=== PATIENT | male | born 1935 | race Caucasian/White ===

== ENCOUNTER 2017-02-25 15:20 | Emergency (ER) | payer OTHER ==
[~2017-02-25] VITALS: Ht 180.3 cm; Wt 90.0 kg
[2017-02-25 15:30] VITALS: BP 150/80; PULSE 88; RESP 16; TEMP 97.9; O2SAT 94
[2017-02-25 15:53] VITALS: BP 137/74; PULSE 77; RESP 18; TEMP 97.6; O2SAT 94
[2017-02-25] MEDS ORDERED: ATEN25TA PO (15:53)
[2017-02-25] MEDS ORDERED: TAMS0.4C4 PO (15:53)
[2017-02-25] MEDS ORDERED: LUTE6CAP2 PO (15:53)
[2017-02-25] MEDS ORDERED: ASPI81CH CHEW (15:53)
[2017-02-25] MEDS ORDERED: ATOR40TA16 PO (15:53)
[2017-02-25] MEDS ORDERED: OMEP20TA PO (15:53)
[2017-02-25] MEDS ORDERED: DOCU100C PO (15:53)
[2017-02-25 16:06] VITALS: O2SAT 95
[2017-02-25] MEDS ORDERED: SODIUM CHLORIDE 0.9% FLUSH 10 ML FLUSH IVF PRN (16:15)
[2017-02-25] MEDS ORDERED: ASPIRIN 81 MG CHEW TAB PO ONE (16:15)
--- NOTE | 2017-02-25 16:30 | RADRPT ---
EXAM DATE/TIME: 02/25/2017 16:18 [place] COMPARISON: No previous studies available for comparison. INDICATIONS : Right sided chest pain. MEDICAL HISTORY : None. SURGICAL HISTORY : None. ENCOUNTER: Initial ACUITY: 1 day PAIN SCORE: 7/10 LOCATION: Right chest FINDINGS: There is mild compensated cardiomegaly. Linear areas of parenchymal opacity left lung base possibly atelectasis. The portion of the bony skeleton visualized is unremarkable. CONCLUSION: Mild compensated cardiomegaly. Atelectatic changes left base. Zurdo Garcias MD FACR on February 25, 2017 at 16:28 Board Certified Radiologist. This report was verified electronically.
[2017-02-25 16:46] LABS: AUTOMATED NEUTROPHIL # 4.2 TH/MM3 (1.8-7.7); BASOPHIL % 0.4 % (0.0-2.0); EOSINOPHIL # 0.3 TH/MM3 (0-0.4); EOSINOPHIL % 3.3 % (0.0-4.0); HEMATOCRIT 39.7 % (39.0-51.0); HEMO FLAGS DIFF FINAL; LYMPH % 31.3 % (9.0-44.0); LYMPHOCYTE # 2.4 TH/MM3 (1.0-4.8); MEAN CELL VOLUME 96.3 FL (80.0-100.0); MEAN CORPUSCULAR HEMOGLOBIN 32.8 PG (27.0-34.0); PLATELET COUNT 168 TH/MM3 (150-450); RED BLOOD COUNT 4.13 MIL/MM3 (4.50-5.90); RED CELL DISTRIBUTION WIDTH 13.6 % (11.6-17.2); WHITE BLOOD COUNT 7.6 TH/MM3 (4.0-11.0)
[2017-02-25 16:53] LABS: ALT (GPT) 21 U/L (12-78); ANION GAP 9 MEQ/L (5-15); AST (GOT) 15 U/L (15-37); BLOOD UREA NITROGEN 13 MG/DL (7-18); CHLORIDE 109 MEQ/L (98-107); GLOMERULAR FILTRATION RATE 60 ML/MIN (>89); POTASSIUM 3.8 MEQ/L (3.5-5.1); SODIUM (NA) 142 MEQ/L (136-145)
[2017-02-25 16:58] LABS: ALKALINE PHOSPHATASE 84 U/L (45-117); TOTAL BILIRUBIN ADULT 0.6 MG/DL (0.2-1.0)
[2017-02-25 17:04] VITALS: BP_SYST 130; BP_SYST 139; BP_DIAS 77; BP_DIAS 84; PULSE 77; RESP 18; O2SAT 96
--- NOTE | 2017-02-25 17:24 | PD ---
HPI Chief Complaint: Chest Pain Time Seen by Provider: 15:59 Travel History International Travel<30 days: No Contact w/Intl Traveler<30days: No Traveled to known affect area: No History of Present Illness HPI This is a 81-year-old male who presents to the emergency department having had a flu shot in his right arm 5 days ago. The day after he started to have right sided chest wall pain that extends underneath his right armpit, constant, worse when he moves his arm, improved with rest, with no associated shortness of breath, diaphoresis, nausea or palpitations. The patient does have a history of hypertension and hyperlipidemia and he is borderline diabetic. He says he had a stress test about 6-8 months ago at the OR which was normal. PFSH Past Medical History Hx Anticoagulant Therapy: Yes (81MG ASA) Cardiovascular Problems: Yes (HTN) Hypertension: Yes Immunizations Current: Yes Social History Alcohol Use: No Tobacco Use: No Substance Use: No Allergies-Medications (Allergen,Severity, Reaction): Coded Allergies: No Known Allergies (Unverified , 02/25/17) Reported Meds & Prescriptions Reported Meds & Active Scripts Active Reported Tamsulosin (Tamsulosin HCl) 0.4 Mg Cap 0.4 Mg PO HS Omeprazole 20 Mg Tab 20 Mg PO DAILY Lutein 6 Mg Cap 6 Mg PO DAILY Docusate Sodium 100 Mg Cap 100 Mg PO DAILY Atorvastatin (Atorvastatin Calcium) 40 Mg Tab 40 Mg PO HS Atenolol 25 Mg Tab 25 Mg PO DAILY Aspirin 81 Mg Chew 81 Mg CHEW DAILY Review of Systems Except as stated in HPI: all other systems reviewed are Neg Physical Exam Narrative GENERAL:Well appearing, no acute distress SKIN: Focused skin assessment warm and dry. HEAD: Atraumatic. Normocephalic. EYES: Pupils equal and round. No injection or drainage. ENT: Moist mucous membranes NECK: Trachea midline. CARDIOVASCULAR: Regular rate and rhythm. No murmur appreciated. RESPIRATORY: Clear to auscultation. Breath sounds equal bilaterally. GASTROINTESTINAL: Abdomen soft, non-tender, nondistended. MUSCULOSKELETAL: Tender to palpation over the right chest wall with pain with abduction of the right shoulder NEUROLOGICAL: Awake and alert. No obvious cranial nerve deficits. Moving all extremities. PSYCHIATRIC: Appropriate mood and affect; insight and judgment normal. Data Data Last Documented VS Vital Signs Date Time Temp Pulse Resp B/P (MAP) Pulse Ox O2 Delivery O2 Flow Rate FiO2 10/13/17 17:04 77 18 130/77 (94) 96 Room Air 139/84 (102) 02/25/17 15:53 97.6 Orders Orders Electrocardiogram (02/25/17 16:04) Complete Blood Count With Diff (02/25/17 16:04) Comprehensive Metabolic Panel (02/25/17 16:04) Troponin I (02/25/17 16:04) Ecg Monitoring (02/25/17 16:04) Bilateral Bp Monitoring (02/25/17 16:04) Iv Access Insert/Monitor (02/25/17 16:04) Oximetry (02/25/17 16:04) Oxygen Administration (02/25/17 16:04) Aspirin Chew (Aspirin Chew) (02/25/17 16:15) Sodium Chloride 0.9% Flush (Ns Flush) (02/25/17 16:15) Chest, Pa & Lat (02/25/17 16:04) Labs Laboratory Tests Test 02/25/17 16:15 White Blood Count 7.6 TH/MM3 Red Blood Count 4.13 MIL/MM3 Hemoglobin 13.5 GM/DL Hematocrit 39.7 % Mean Corpuscular Volume 96.3 FL Mean Corpuscular Hemoglobin 32.8 PG Mean Corpuscular Hemoglobin Concent 34.0 % Red Cell Distribution Width 13.6 % Platelet Count 168 TH/MM3 Mean Platelet Volume 6.8 FL Neutrophils (%) (Auto) 55.0 % Lymphocytes (%) (Auto) 31.3 % Monocytes (%) (Auto) 10.0 % Eosinophils (%) (Auto) 3.3 % Basophils (%) (Auto) 0.4 % Neutrophils # (Auto) 4.2 TH/MM3 Lymphocytes # (Auto) 2.4 TH/MM3 Monocytes # (Auto) 0.8 TH/MM3 Eosinophils # (Auto) 0.3 TH/MM3 Basophils # (Auto) 0.0 TH/MM3 CBC Comment DIFF FINAL Differential Comment Blood Urea Nitrogen 13 MG/DL Creatinine 1.17 MG/DL Random Glucose 108 MG/DL Total Protein 6.4 GM/DL Albumin 3.6 GM/DL Calcium Level 8.6 MG/DL Alkaline Phosphatase 84 U/L Aspartate Amino Transf (AST/SGOT) 15 U/L Alanine Aminotransferase (ALT/SGPT) 21 U/L Total Bilirubin 0.6 MG/DL Sodium Level 142 MEQ/L Potassium Level 3.8 MEQ/L Chloride Level 109 MEQ/L Carbon Dioxide Level 24.0 MEQ/L Anion Gap 9 MEQ/L Estimat Glomerular Filtration Rate 60 ML/MIN Troponin I LESS THAN 0.02 NG/ML MDM Medical Decision Making Medical Screen Exam Complete: Yes Emergency Medical Condition: Yes Interpretation(s) EKG: Normal sinus rhythm with no ST changes Afebrile, no tachycardia, hypertensive, no hypoxia Chest x-ray: Mild compensated cardiomegaly No leukocytosis Electrolytes are reassuring Troponin is normal Differential Diagnosis Acute coronary syndrome, congestive heart failure, costochondritis, musculoskeletal chest pain, pneumonia Narrative Course This is a 81-year-old male who presents to the emergency department with pain in his right chest wall and right axilla after getting the flu shot in his right arm. He initially thought the pain was associated with the flu shot but it's persisted for several days so he came in to the emergency department. EKG is nonischemic, labs are reassuring with a normal troponin. Chest x-rays reassuring. I had along conversation with the patient. His pain has been constant for 5 days so one would expect his troponin were elevated if this were an acute coronary syndrome. I did offer him observation in the chest pain center for serial cardiac enzymes and risk stratification given his risk factors for coronary artery disease although I think the likelihood of this is very low and I suspect this is musculoskeletal pain in the setting of receiving his vaccine. Patient doesn't want to stay would like to follow-up with his primary care physician which I think is very reasonable. Patient will be discharged home. Diagnosis Primary Impression: Chest pain Qualified Codes: R07.9 - Chest pain, unspecified Patient Instructions: General Instructions Additional Instructions: If you develop severe chest pain, shortness of breath, sweating, lightheadedness , dizziness or difficulty breathing return to the emergency department immediately. Followup with your primary care physician in 2-3 days if your symptoms are not resolved. Med/Other Pt SpecificInfo: No Change to Meds Disposition: 01 DISCHARGE HOME Condition: Stable Roxie Rao MD Feb 25, 2017 17:24
--- NOTE | 2017-02-25 21:19 | EKG ---
Date Performed: 02/25/2017 Time Performed: 15:59:25 PTAGE: 81 years EKG: Baseline artifact present Sinus rhythm NORMAL ECG NO PREVIOUS TRACING DOCTOR: Mikey Ibrahim Interpretating Date/Time 02/25/2017 21:18:59
== END 2017-02-25 18:17 | disposition home or self-care (01) ==
LOC: NEPE 15:20
DX: R07.9 Chest pain, unspecified (principal); I10 Essential (primary) hypertension; E78.5 Hyperlipidemia, unspecified; R73.03 Prediabetes; Z79.82 Long term (current) use of aspirin; Z86.79 Personal history of other diseases of the circulatory system; Z98.890 Other specified postprocedural states
CPT/HCPCS: 71020; 80053; 84484; 85025; 93005